=== PATIENT | female | born 1975 | race Caucasian/White ===

== ENCOUNTER → 2020-07-14 17:48 | Outpatient (CLI) | payer OTHER, SELFPAY ==
--- NOTE | ~2020-07-14 | MM_ITS ---
EXAMINATION: MM scrn gianni implant BI w [place] HISTORY: Screening mammogram TECHNIQUE: Craniocaudal and mediolateral oblique 3-D tomosynthesis images with implant displacement a nd synthetic 2-D images were generated. Craniocaudal and mediolateral oblique views of the breasts wi thout implant displacement were obtained using full field digital mammography. CAD analysis was submi tted and interpreted. COMPARISON: 09/03/2014 BREAST PARENCHYMAL COMPOSITION: The breasts are heterogeneously dense, which may obscure small masses . FINDINGS: RIGHT BREAST: There is no evidence of suspicious mass, calcification, or architectural distortion to suggest malignancy. There has been no significant interval change. LEFT BREAST: A mass is present in the upper breast best appreciated 8.3 cm from the nipple on the imp lant displaced mediolateral oblique view. IMPRESSION: 1. Left breast mass. 2. Additional mammographic views and possible breast ultrasound are recommended. BI-RADS Category 0: Incomplete: Needs additional imaging evaluation. Reviewed, dictated and finalized at location A. IMPRESSION: 1. Left breast mass. 2. Additional mammographic views and possible breast ultrasound are recommended . BI-RADS Category 0: Incomplete: Needs additional imaging evaluation.
== END ==
PROVIDERS: Visit Provider Obstetrics & Gynecology
DX: Z12.31 Encounter for screening mammogram for malignant neoplasm of breast (principal); R92.8 Other abnormal and inconclusive findings on diagnostic imaging of breast
CPT/HCPCS: 77063; 77067

== ENCOUNTER 2020-07-26 09:23 | Outpatient (CLI) | payer OTHER, SELFPAY ==
--- NOTE | ~2020-07-26 | MMUS_ITS ---
EXAMINATION: MM diagnostic mammo implant LT, US breast LT complete HISTORY: Left upper breast mass 8.3 cm from nipple on screening implant displaced MLO view of 07/15/19 TECHNIQUE: Additional 3-D tomosynthesis images of the left breast were performed and synthetic 2-D im ages were generated. CAD analysis was submitted and interpreted. High resolution complete left breast ultrasound was performed. COMPARISON: 07/14/2020, 09/03/2014 bilateral digital screening mammogram examinations FINDINGS: MAMMOGRAPHIC FINDINGS: An approximately 8 x 11 mm circumscribed opacity in the upper outer left breast is confirmed. ULTRASOUND: 2:00 4 cm from nipple: Oval parallel circumscribed heterogeneous hypoechoic mass measuring 12.2 x 6.8 mm with mild shadowing. Ultrasound-guided biopsy is recommended. IMPRESSION: 1. 6.8 x 12.2 mm solid mass at 2:00 4 cm from nipple 2. Ultrasound-guided biopsy is recommended BI-RADS category 4, suspicious findings. Dr. Caban telephoned the report and ultrasound guided biopsy recommendation to Dr. Haywood's plastic surgery assistant Azra on 07/26/2020 at 1033 hours. Reviewed, dictated and finalized at location A. IMPRESSION: 1. 6.8 x 12.2 mm solid mass at 2:00 4 cm from nipple 2. Ultrasound-guided biopsy is recommended BI-RADS category 4, suspicious findings. Dr. Caban telephoned the report and ultrasound guided biopsy recommendation to Kalyani Haywood's plastic surgery assistant Azra on 07/26/2020 at 1033 hours.
== END 2020-07-26 09:24 | disposition home or self-care (01) ==
LOC: CHSIMG 09:25
PROVIDERS: PCP Internal Medicine; Visit Provider Obstetrics & Gynecology
DX: R92.8 Other abnormal and inconclusive findings on diagnostic imaging of breast (principal)
CPT/HCPCS: 76641; 77065

== ENCOUNTER 2020-08-09 10:02 | Outpatient (CLI) | payer OTHER, SELFPAY ==
--- NOTE | ~2020-08-09 | MMUS_ITS ---
EXAMINATION: US breast biopsy LT w image, MM post biopsy invasive LT DATE: 08/09/2020 11:08 (accession [id number]), 08/09/2020 11:19 (accession [id number]) INDICATION: Mass in the upper outer quadrant of the left breast. Ultrasound-guided core biopsy is req uested to evaluate for malignancy. TECHNIQUE AND FINDINGS: The risks and potential benefits of the procedure were discussed with the patient including bleeding and infection. A time out was performed. The skin of the left breast was prepared and draped in usual sterile fashion. 1% lidocaine was used for superficial anesthesia. 1% lidocaine with epinephrine was used for deep anesthesia. A vacuum-assisted biopsy needle was advanced through to the outer edge of the region of interest from an inferolateral approach utilizing sonographic guidance. A total of three tissue core samples were obtained through the lesion. A tissue marker clip was then placed at the biopsy site. Hemostasis was achieved. A sterile bandage was applied. The patient tolerated procedure well and there was no evidence of immediate complication. The patient was given verbal instructions to return to the Emergency Department in the event of severe breast pa in or rapid breast enlargement. A two view left breast mammogram was obtained to document tissue lizbeth er clip placement. IMPRESSION: 1. Successful ultrasound-guided vacuum-assisted biopsy of left breast mass with tissue marker placeme nt. Reviewed, dictated and finalized at location A. IMPRESSION: 1. Successful ultrasound-guided vacuum-assisted biopsy of left breast mass with tissue marker placement.
== END 2020-08-09 10:03 | disposition home or self-care (01) ==
PROVIDERS: PCP Internal Medicine; Visit Provider Surgery
DX: D49.3 Neoplasm of unspecified behavior of breast (principal)
CPT/HCPCS: 19083; 88305; A4648

== ENCOUNTER → 2020-08-16 00:50 | Outpatient (CLI) | payer OTHER, SELFPAY ==
[2020-08-16 20:47] LABS: SARS-CoV-2 RNA PCR Negative
== END ==
PROVIDERS: PCP Internal Medicine; Visit Provider Internal Medicine Gastroenterology
DX: Z01.812 Encounter for preprocedural laboratory examination (principal); Z20.822 Contact with and (suspected) exposure to COVID-19
CPT/HCPCS: C9803; U0003; U0005

== ENCOUNTER 2020-08-19 00:52 | Day surgery (SDC) | payer OTHER, SELFPAY ==
[2020-08-09 14:29] VITALS: BMI 26.6
[2020-08-19 07:34] VITALS: BP 108/54; PULSE 63; RESP 18; TEMP 36.7; O2SAT 98
[2020-08-19] MEDS: LACTATED RINGERS 1,000 ML 150 ML IV CONT (07:47)
--- NOTE | 2020-08-19 07:47 | P.PNAN_ITS ---
Anes - Initial Pre Proc Eval Procedure: Operation Date: 08/19/20 08:30 Proposed Procedures p Esophagogastroduodenoscopy & Colonoscopy - Francis Feldman MD Date/Time: 08/19/20 07:47 Surgeon: Francis Feldman MD Pre Op Diagnosis: Dysphagia, mucus stools, fecel incontinence Patient Data Age: 45 Gender: F Height: 5 ft 5 in Weight: 71 kg Last Vital Signs Temp 98.0 F 08/19/20 07:34 Pulse 63 08/19/20 07:34 Resp 18 08/19/20 07:34 BP 108/54 L 08/19/20 07:34 Pulse Ox 98 08/19/20 07:34 Allergies Allergy/AdvReac Type Severity Reaction Status Date / Time metoclopramide [From Reglan] Allergy Severe suicidal Verified 08/19/20 07:33 ciprofloxacin [From Cipro] Allergy Intermediate stomach Verified 08/19/20 07:33 pain Home Medications Medication Instructions Recorded Confirmed Type multivitamin 1 tablet PO DAILY 06/02/20 08/09/20 History omeprazole magnesium 20 mg 20 mg PO DAILY 06/02/20 08/09/20 History tablet,delayed release pramipexole [Mirapex] 0.25 mg PO QHS 08/09/20 08/19/20 History Patient hx anesthesia problems: none Family hx anesthesia problems: none PMFSH Past Medical History Medical History (Updated 08/19/20 @ 07:44 by Vimal Layne MD) Anemia Epigastric pain Frequent PVCs Surgical History Surgical History History of breast augmentation History of History of mandibular surgery Status post creation of urethral sling by suprapubic approach Family History Family History Father Melanoma Hypertension Other Ovarian cancer Social History Social History Smoking status: Never smoker Alcohol intake: current Substance use: never Substance use type: does not use Living arrangements: with family 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 Questions were solicited and answers provided to the satisfaction of the patient/family/POA.
--- NOTE | 2020-08-19 08:23 | PM.HPGS ---
History of Present Illness History of Present Illness Consent: Risks, benefits, and alternatives have been discussed and questions answered. Patient agrees to proceed with procedure. Chief complaint: Dysphagia, mucus stools, fecel incontinence Narrative: Cal Michael is a 45 year old female with sensation of throat discomfort after eating, also using omeprazole that controls gerd. She needs first screening colonoscopy Review of Systems Constitutional: Constitutional: Denies headache(s) and Denies weakness Eyes: Eyes: Denies blurry vision ENT: Reports Normal hearing present, Denies headache(s) and Denies neck pain Cardiovascular: Cardiovascular: Denies chest pain and Denies dyspnea Respiratory: Respiratory: Denies dyspnea Gastrointestinal: Gastrointestinal: Reports no additional gastrointestinal complaints Genitourinary: Genitourinary: Denies dysuria Musculoskeletal: Musculoskeletal: Denies neck pain Integumentary/Breasts: Skin/Breast: Denies dry skin Neurologic: Reports Normal hearing present, Denies headache(s) and Denies weakness Psychiatric: Psychiatric: Denies anxiety Endocrine: Endocrine: Denies change in body appearance Hematologic/Lymphatic: Hematologic/Lymphatic: Denies easy bleeding Allergic/Immunologic: Allergic/Immunologic: Denies urticaria PMFSH Past Medical History Medical History (Updated 08/19/20 @ 08:24 by Francis Feldman MD) Anemia Colon cancer screening Epigastric pain Frequent PVCs Throat fullness Surgical History Surgical History History of breast augmentation History of History of mandibular surgery Status post creation of urethral sling by suprapubic approach Family History Family History Father Melanoma Hypertension Other Ovarian cancer Social History Social History Smoking status: Never smoker Alcohol intake: current Substance use: never Substance use type: does not use Living arrangements: with family 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 Gender identity (if verbalized by the patient): Female Meds Home Medications and Allergies Home Medications Medication Instructions Recorded Confirmed Type multivitamin 1 tablet PO DAILY 06/02/20 08/09/20 History omeprazole magnesium 20 mg 20 mg PO DAILY 06/02/20 08/09/20 History tablet,delayed release pramipexole [Mirapex] 0.25 mg PO QHS 08/09/20 08/19/20 History Allergies Allergy/AdvReac Type Severity Reaction Status Date / Time metoclopramide [From Reglan] Allergy Severe suicidal Verified 08/19/20 07:33 ciprofloxacin [From Cipro] Allergy Intermediate stomach Verified 08/19/20 07:33 pain Vital Signs Vital Signs - 24 hr 08/19/20 07:34 Temperature 98.0 F Pulse Rate 63 Respiratory Rate 18 Blood Pressure 108/54 L Pulse Oximetry 98 Exam Const: General: comfortable and no acute distress HENMT: General nose exam: Normal nares present Eyes: General: appearance normal, both eyes and all related structures Neck: Neck: no JVD Resp: Auscultation: clear to auscultation bilaterally Cardio: Rate: regular rate Rhythm: regular rhythm GI: Inspection: non-distended GI Palp: Yes Soft to palpation Skin: General skin exam: normal color Neuro: General: gait normal Speech: normal speech Extrem: General: normal to inspection Psych: Mental Status: mental status grossly normal Assessment and Plan Assessment and plan (1) Throat fullness: Code(s): R68.89 - Other general symptoms and signs Status: Acute Assessment and Plan: egd (2) Colon cancer screening: Code(s): Z12.11 - Encounter for screening for malignant neoplasm of colon Status: Acute Assessment and Plan: colonoscopy
[2020-08-19 09:00] VITALS: BP 92/46; PULSE 79; RESP 23; O2SAT 99
[2020-08-19 09:10] VITALS: BP 91/52; PULSE 74; RESP 17; O2SAT 100
[2020-08-19 09:20] VITALS: BP 101/60; PULSE 79; RESP 17; O2SAT 100
== END 2020-08-19 09:37 | disposition home or self-care (01) ==
PROVIDERS: PCP Internal Medicine; Visit Provider Internal Medicine Gastroenterology
PROC: 0DJ08ZZ Inspection of Upper Intestinal Tract, Via Natural or Artificial Opening Endoscopic (ICD-10-PCS; CPT 43235; principal; 2020-08-19 08:30)
DX: Z12.11 Encounter for screening for malignant neoplasm of colon (principal); K44.9 Diaphragmatic hernia without obstruction or gangrene; K29.70 Gastritis, unspecified, without bleeding; K64.8 Other hemorrhoids; R10.13 Epigastric pain; R13.11 Dysphagia, oral phase; D64.9 Anemia, unspecified; I49.3 Ventricular premature depolarization; R15.9 Full incontinence of feces
CPT/HCPCS: 45378; 43239; 88305; J2704; J7120

== ENCOUNTER 2021-01-02 02:01 | Day surgery (SDC) | payer OTHER, SELFPAY ==
[2020-12-23 15:06] VITALS: BMI 25.0
[2021-01-02] VITALS (8 sets, daily range): BP systolic 101–125; BP diastolic 47–81; PULSE 46–73; RESP 10–18; TEMP 36.1–36.8; O2SAT 93–100; BMI 25.0
--- NOTE | 2021-01-02 08:07 | P.PNAN_ITS ---
Anes - Initial Pre Proc Eval Procedure: Operation Date: 01/02/21 15:00 Proposed Procedures p Laparoscopic Bilateral Tubal Sterilization with Fallopian Rings - Ace Haywood MD s Hysteroscopy, Dilation and Curettage, [place] Endometrial Ablation - Ace Haywood MD Date/Time: 01/02/21 08:07 Surgeon: Ace Haywood MD Pre Op Diagnosis: desires sterilization, irreg bleeding Patient Data Age: 45 Gender: F Height: 1.65 m Weight: 68.2 kg Allergies Allergy/AdvReac Type Severity Reaction Status Date / Time metoclopramide [From Reglan] Allergy Severe suicidal Verified 01/02/21 13:06 ciprofloxacin [From Cipro] Allergy Intermediate stomach Verified 01/02/21 13:06 pain Home Medications Medication Instructions Recorded Confirmed Type pramipexole [Mirapex] 0.25 mg PO QHS 08/09/20 12/23/20 History omeprazole 40 mg capsule,delayed 40 mg PO DAILY #30 cap 08/23/20 01/02/21 Rx release Patient hx anesthesia problems: none Family hx anesthesia problems: none PMFSH Past Medical History Medical History (Updated 01/02/21 @ 08:07 by Berlin Limon DO) Anemia Colon cancer screening Epigastric pain Frequent PVCs GERD (gastroesophageal reflux disease) RLS (restless legs syndrome) Throat fullness Surgical History Surgical History History of breast augmentation History of History of mandibular surgery Status post creation of urethral sling by suprapubic approach Family History Family History Father Melanoma Hypertension Other Ovarian cancer Social History Social History Smoking status: Never smoker Substance use type: does not use 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 Gender identity (if verbalized by the patient): Female Spiritual care concerns: No Anes - Eval Final PreProcedure Day of Procedure 01/02/21 08:07 Patient weight: normal Heart: regular rate and rhythm Lungs: clear to auscultation and normal air movement Airway: Mallampati scale class II Neurological: alert and oriented Last oral intake: >/= 8 hours ASA classification: II Emergent: no Anesthetic plan: proceed Anesthesia type and monitoring: general ETT and standard monitoring Informed Consent: The patient's anesthetic plan and its attendant risks and benefits were discussed with the patient/family/POA. Questions were solicited and answers provided to the satisfaction of the patient/family/POA.
[2021-01-02] MEDS: ACETAMINOPHEN 500 MG TABLET 1000 MG PO (14:03)
[2021-01-02] MEDS: KETOROLAC 15 MG/ML VIAL (*BKC) IV PUSH (14:05)
[2021-01-02] MEDS: LACTATED RINGERS 1,000 ML 30 ML IV CONT (14:13)
--- NOTE | 2021-01-02 15:20 | SUR.PREOP ---
1520- Notified patient Dr. Haywood will be arriving for procedure shortly, start time will be delayed. Patient verbalized understanding.
--- NOTE | 2021-01-02 15:33 | PM.IMHP ---
H&P: HPI History of Present Illness Date/Time: 01/02/21 15:33 45 y/o with heavy, irregular menses. Desires permanent contraception. Chief Complaint: Heavy periods Review of Systems Review of Systems: All systems reviewed & are unremarkable except as noted in HPI and below PMFSH Past Medical History Medical History Anemia Colon cancer screening Epigastric pain Frequent PVCs GERD (gastroesophageal reflux disease) RLS (restless legs syndrome) Throat fullness Surgical History Surgical History History of breast augmentation History of History of mandibular surgery Status post creation of urethral sling by suprapubic approach Family History Family History Father Melanoma Hypertension Other Ovarian cancer Social History Social History Smoking status: Never smoker Substance use type: does not use 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 Gender identity (if verbalized by the patient): Female Spiritual care concerns: No Meds Home Medications and Allergies Home Medications Medication Instructions Recorded Confirmed Type pramipexole [Mirapex] 0.25 mg PO QHS 08/09/20 12/23/20 History omeprazole 40 mg capsule,delayed 40 mg PO DAILY #30 cap 08/23/20 01/02/21 Rx release Allergies Allergy/AdvReac Type Severity Reaction Status Date / Time metoclopramide [From Reglan] Allergy Severe suicidal Verified 01/02/21 13:06 ciprofloxacin [From Cipro] Allergy Intermediate stomach Verified 01/02/21 13:06 pain Vital Signs Vital Signs - 24 hr 01/02/21 13:05 Temperature 36.8 C Pulse Rate 62 Respiratory Rate 18 Blood Pressure 115/81 Pulse Oximetry 98 Exam Const: Orientation/consciousness: patient oriented x3 Other: Well-developed, well-nourished female in no acute distress. Neck: Thyroid: thyroid normal Lymphatic: no lymphadenopathy noted (in neck, axilla or inguinal nodes) Resp: Effort & Inspection: normal respiratory effort Auscultation: clear to auscultation bilaterally Cardio: Rate: regular rate Rhythm: regular rhythm Heart sounds: S1 normal heart sound present and S2 normal heart sound present GI: Other: ABD: Soft, nontender, nondistended. No guarding or rebound tenderness. No hepatosplenomegaly. : General: Yes no CVA tenderness Other: External genitalia: normal female hair distribution, without lesion. Urethral meatus: no lesion, non prolapsed. Bladder: no mass, nontender Vagina: well-estrogenized, without lesion or discharge. No cystocele or rectocele. Cervix: no lesion or discharge. Uterus: small, anteverted, freely mobile, nontender Adnexa: no mass or tenderness. Anus/perineum: no lesions, nontender Back/Spine/Pelvis: Back: no CVA tenderness Skin: General skin exam: normal color and no rashes or lesions noted Neuro: General: patient oriented x3 Extrem: Other: Extremities: nontender with no edema Psych: Mental Status: mental status grossly normal Affect: normal affect Assessment and Plan Assessment and plan (1) Menometrorrhagia: Code(s): N92.1 - Excessive and frequent menstruation with irregular cycle Status: Acute Assessment and Plan: A: Menometrorrhagia, desired sterility. P: Reviewed medical as well as surgical management options. She prefers the latter. Specifically, I have offered her a laparoscopic bilateral tubal ligation, hysteroscopy, dilation and sharp curettage, and endometrial ablation. She understands there are temporary methods of contraception available to her. She understands that there are nonsurgical options as well as surgical options. She understands that tubal ligation will render her permanently sterile. She understands that there is a failure rate associated with tubal
--- NOTE | 2021-01-02 15:36 | WPDHPUPDATE1 ---
History and Physical Update Update Date/Time: 01/02/21 15:36 History and Physical has been reviewed, including an updated exam of the patient. There are NO changes in the patient's condition. Risks, benefits, and alternatives have been discussed and questions answered. Patient agrees to proceed with procedure.
--- NOTE | 2021-01-02 16:21 | W.PM.PROC2 ---
Procedure Note - Detailed Date of Procedure 01/02/21 Pre-op Diagnosis Menometrorrhagia Desired sterility Post-op Diagnosis same Procedure Performed Laparoscopic bilateral tubal ligation with Falope rings Hysteroscopy Dilation and sharp curettage Endometrial ablation Surgeon Ace Haywood MD Anesthesia general and local (1% lidocaine) Findings Enlarged uterus with adhesions between anterior serosal surface of the uterus and the anterior abdominal wall. Normal-appearing ovaries and tubes. Otherwise, normal anterior and posterior cul de sac, bilateral round and uterosacral ligaments. Vermiform appendix not visualized. Right upper quadrant anatomy unremarkable. The uterus sounded to a depth of 11 cm, with a cervical length of 3 cm. Both tubal ostia were seen. Description of Procedure The patient was taken to the operating room where general endotracheal anesthesia was administered. She was prepared and draped in the usual sterile fashion in dorsal lithotomy position. The bladder was drained with a red rubber catheter. A sterile speculum was placed into the vagina. The anterior lip of the cervix was grasped with a single-tooth tenaculum. The acorn uterine manipulator was placed. The speculum was withdrawn. Gloves were changed and attention was turned the abdomen. An infraumbilical skin incision was made with a scalpel. The abdomen was tented and a 5mm bladeless trocar was advanced under direct laparoscopic visualization. Pneumoperitoneum was administered using carbon dioxide gas. A survey of the pelvis and abdomen revealed the findings noted above. A second skin incision was made in the midline above the symphysis pubis and an 8mm bladeless trocar was advanced under direct laparoscopic visualization. The fallopian tube on the right side was followed out to the fimbriated end for identification. It was then grasped in the midportion with the Falope ring applicator. The Falope ring was tented applied. A good loop of tube was noted to be distal to the ring. Hemostasis was excellent. The device was reloaded and the contralateral tube was similarly identified and ligated. An excellent application was noted here as well. A total of 4mL of 1% lidocaine was infiltrated into the serosa of the proximal tubes for postoperative anesthesia. The ports were withdrawn. The gas was allowed to escape. The skin incisions were reapproximated using interrupted subcuticular sutures of 4 0 Vicryl. Dermaflex was applied externally. Attention was redirected to the vagina, where the acorn manipulator was withdrawn and the speculum reintroduced. Ten mL of 1% lidocaine was administered in a paracervical block. The cervix was then gently dilated using Hegar dilators until an 8 mm dilator could be passed. Hysteroscopy was performed using sterile saline as a distention medium. Findings are as noted above. Sharp curettage was then performed, and endometrial curettings were collected on a Telfa pad and passed off to be sent to pathology. Finally, the the [place] device was advanced and endometrial ablation commenced without difficulty. The device was withdrawn and a second look was taken using the hysteroscope. Excellent coverage of the endometrial cavity was noted. The tenaculum was removed. Hemostasis was excellent. Sponge, lap, needle and instrument counts were correct. The patient was awakened and taken to the recovery room in stable condition. I was present and scrubbed through the entire procedure. Implants Falope rings x 2 Estimated Blood Loss 10 Drains No Packing No Pathology yes (Endometrial curettings) Complications None Condition stable Disposition PACU
[2021-01-02] MEDS: fentaNYL CITRATE INJ (*CRX) 100 MCG/2 ML VIAL 25 MCG IV PUSH ×4 (16:48→17:08)
[2021-01-02] MEDS: oxyCODONE HCL (*CRX) 5 MG TAB IR PO (17:37)
[2021-01-02] MEDS: ONDANSETRON HCL ODT 4 MG TABLET PO (18:12)
== END 2021-01-02 18:17 | disposition home or self-care (01) ==
PROVIDERS: PCP Internal Medicine; Visit Provider Obstetrics & Gynecology
PROC: (CPT 58671; principal; 2021-01-02 15:00)
PROC: 0U5B8ZZ Destruction of Endometrium, Via Natural or Artificial Opening Endoscopic (ICD-10-PCS; CPT 58563; 2021-01-02 15:00)
DX: N92.1 Excessive and frequent menstruation with irregular cycle (principal); Z30.2 Encounter for sterilization; D64.9 Anemia, unspecified; K21.9 Gastro-esophageal reflux disease without esophagitis; G25.81 Restless legs syndrome; I49.3 Ventricular premature depolarization
CPT/HCPCS: 58671; 58563; 88305; A4264; A9270; J1100; J1885; J2250; J2405; J2704; J2710; J3010; J7030; J7120

== ENCOUNTER 2021-02-24 11:12 | Outpatient (CLI) | payer OTHER, SELFPAY ==
--- NOTE | ~2021-02-24 | US_ITS ---
US breast LT complete 02/24/2021 11:46 Indication: Left breast mass follow-up. Previous benign biopsy. Procedure: High-resolution ultrasound of the left breast Comparison: 07/26/2020 Findings: There is a stable oval hypoechoic mass with parallel orientation, internal vascularity and no significant posterior features measuring 12 x 8 x 7 mm, unchanged from prior examination. At 12:00 , 2 cm from the nipple, there is an oval hypoechoic mass with circumscribed margins, parallel orienta tion, minimal internal vascularity and no significant posterior features measuring 8 x 3 x 7 mm, like ly benign. Impression: 1: Probable benign left breast masses at 2:00 and 12:00. BI-RADS CATEGORY 3-PROBABLY BENIGN FINDING RECOMMENDATION: Six-month follow-up diagnostic bilateral mammogram and targeted left breast ultrasoun d recommended. Reviewed, dictated and finalized at location A. Impression: 1: Probable benign left breast masses at 2:00 and 12:00. BI-RADS CATEGORY 3-PROBABLY BENIGN FINDING RECOMMENDATION: Six-month follow-up diagnostic bilateral mammogram and targeted left breast ultrasound recommended.
== END 2021-02-24 11:13 | disposition home or self-care (01) ==
PROVIDERS: PCP Internal Medicine; Visit Provider Surgery
DX: N63.20 Unspecified lump in the left breast, unspecified quadrant (principal)
CPT/HCPCS: 76641

== ENCOUNTER 2021-09-11 07:36 | Outpatient (CLI) | payer OTHER, SELFPAY ==
--- NOTE | ~2021-09-11 | US_ITS ---
US right upper quadrant INDICATION: Right upper quadrant pain PROCEDURE: Realtime right upper abdominal ultrasound. COMPARISON: No prior studies for comparison. FINDINGS: The pancreas is normal without focal mass or pancreatic ductal dilation. Liver echotexture is normal without focal mass or intrahepatic biliary dilatation. There is normal directional flow i n the portal vein. The gallbladder is normal without stones, gallbladder wall thickening or pericholecystic fluid. Comm on bile duct measures 3.6 mm. No sonographic Reid's sign. IMPRESSION: 1: Normal limited abdominal ultrasound. Reviewed, dictated and finalized at location A.
== END 2021-09-11 07:37 | disposition home or self-care (01) ==
PROVIDERS: PCP Internal Medicine; Visit Provider Nurse Practitioner
DX: R10.11 Right upper quadrant pain (principal)
CPT/HCPCS: 76705

== ENCOUNTER 2022-03-29 17:16 | Outpatient (CLI) | payer OTHER, SELFPAY ==
[2022-03-29 17:36] LABS: Hematocrit 39.2 % (37.0-47.0); Hemoglobin 13.2 g/dL (12.0-15.0); Mean Corpuscular HGB Conc 33.7 g/dl (32-36); Mean Corpuscular Hemoglobin 30.2 pg (26-34); Mean Corpuscular Volume 89.7 fl (80-100); Mean Platelet Volume 9.4 fl (7.4-10.4); Platelet Count Result 247 k/mm3 (150-375); Red Blood Count 4.37 M/mm3 (4.2-5.4); Red Cell Distribution Width 14.1 % (11.5-14.5); White Blood Count 8.3 K/mm3 (4.5-10.0)
[2022-03-29 17:42] LABS: Alanine Aminotransferase 19 U/L (6-35); Albumin Level 4.5 g/dL (3.5-5.1); Alkaline Phosphatase 42 U/L (38-126); Amylase 151 U/L (30-110); Anion Gap 6 mmol/L (8-16); Aspartate Amino Transferase 23 U/L (14-36); Bilirubin,Total 0.6 mg/dL (0.2-1.3); Blood Urea Nitrogen 17 mg/dL (7-17); Calcium 8.6 mg/dL (8.4-10.2); Carbon Dioxide 30 mmol/L (22-30); Chloride 104 mmol/L (98-107); Estimated Glomerular Filt Rate > 60; Glucose 100 mg/dL (65-110); Lipase 352 U/L (23-300); Potassium 3.7 mmol/L (3.4-5.0); Sodium 140 mmol/L (137-145)
== END 2022-03-29 17:17 | disposition home or self-care (01) ==
LOC: ANHLAB 17:18
PROVIDERS: PCP Internal Medicine; Visit Provider Internal Medicine
DX: R10.11 Right upper quadrant pain (principal)
CPT/HCPCS: 36415; 80053; 82150; 83690; 85027

== ENCOUNTER 2022-05-01 07:50 | Outpatient (CLI) | payer OTHER, SELFPAY ==
--- NOTE | ~2022-05-01 | MR_ITS ---
EXAMINATION: MR MRCP wo/w con/w 3D wo ind DATE: 05/01/2022 09:00 INDICATION: Chronic pancreatitis, sphincter of Oddi dysfunction TECHNIQUE: Magnetic resonance imaging (MRI) of the abdomen was performed without and with intravenous contrast. Sequences included coronal T2-weighted SS-FSE ARC, coronal T2-weighted FS SS-FSE, coronal T2-weighted 2D FS FIESTA, Water:Coronal LAVA-Flex, sagittal T2-weighted SS-FSE ARC, axial SSFSE ARC, axial 3D DualEcho, axial DWI B=600, axial T1-weighted LAVA, FAT:Coronal LAVA-Flex, and coronal in and opposed phase LAVA-Flex. Thick-slab T2-weighted FRFSE-XL images were obtained for magnetic resonance cholangiopancreatography (MRCP). Maximum intensity projection 3-D reconstructions of the volumetric data were created by the technologist. Postcontrast sequences included a time course of axial T1-weig hted LAVA, FAT:Coronal LAVA-Flex, coronal in and opposed phase LAVA-Flex, and Water:Coronal LAVA-Flex . COMPARISON: None. CONTRAST: Multihance, 13 cc FINDINGS: ABDOMEN MRI: The liver, spleen, pancreas, gallbladder, and adrenal glands are normal. The left kidney is unremarkable. There is a 6.7 cm cyst of the right kidney. There are no pathologically enlarged ab dominal lymph nodes. No abnormal enhancement is present after contrast administration. Bilateral ebony st implants are noted. ABDOMEN MRCP: There is no intrahepatic or extrahepatic biliary dilatation. No biliary stones or stric ture are identified. The pancreatic duct is normal in course and caliber. IMPRESSION: 1. No MRI correlate for the patient's symptoms. Reviewed, dictated and finalized at location [facility]
== END 2022-05-01 07:51 | disposition home or self-care (01) ==
PROVIDERS: PCP Internal Medicine; Visit Provider Internal Medicine
DX: R79.89 Other specified abnormal findings of blood chemistry (principal); R10.11 Right upper quadrant pain
CPT/HCPCS: 74183; 76376; A9577

== ENCOUNTER 2022-05-03 14:18 | Outpatient (CLI) | payer OTHER, SELFPAY ==
[2022-05-03 14:47] LABS: Alanine Aminotransferase 16 U/L (6-35); Albumin Level 4.1 g/dL (3.5-5.1); Alkaline Phosphatase 39 U/L (38-126); Amylase 107 U/L (30-110); Aspartate Amino Transferase 21 U/L (14-36); Bilirubin,Total 0.4 mg/dL (0.2-1.3); Lipase 189 U/L (23-300)
== END 2022-05-03 14:19 | disposition home or self-care (01) ==
LOC: ANHLAB 14:20
PROVIDERS: PCP Internal Medicine; Visit Provider Nurse Practitioner Family
DX: R10.11 Right upper quadrant pain (principal); R79.89 Other specified abnormal findings of blood chemistry; R74.8 Abnormal levels of other serum enzymes
CPT/HCPCS: 36415; 80076; 82150; 83690